=== PATIENT | female | born 2000 | race Caucasian/White ===

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

== ENCOUNTER → 2022-03-17 | Outpatient (CLI) | payer OTHER ==
--- NOTE | 2022-03-17 09:35 | USB ---
Reason for Exam: Clinical finding. Findings: The whole breast of both breasts, the axilla of both breasts and the retroareolar of both breasts were scanned. There is a hypoechoic complex area with posterior wall enhancement and good through transmission may be a complex cyst. Consider cyst aspiration. Overall Assessment: Suspicious, BI-RAD 4 Management: Aspiration of the right breast. A clinical breast exam by your physician is recommended on an annual basis and results should be correlated with mammographic findings. Electronically signed and approved by: Smith Hooper D.O. Radiologis
== END | disposition home or self-care (01) ==
LOC: RADUSWWP 08:10
PROVIDERS: ATTEND Family Medicine
DX: R92.8 Other abnormal and inconclusive findings on diagnostic imaging of breast (principal); N63.20 Unspecified lump in the left breast, unspecified quadrant

== ENCOUNTER → 2022-03-23 | Outpatient (CLI) | payer OTHER ==
[2022-03-23 14:54] VITALS: BP 112/74; PULSE 104; RESP 17; TEMP 98
--- NOTE | 2022-03-23 15:31 | P.GSHP ---
History of Present Illness H&P Date: 03/23/22 Chief Complaint: abnormal ultrasound of the right breast Sue is a 21 year old white female seen in consultation for Dr. Gilbert regarding a right breast cyst. She felt a lump in her right breast for about a week. It has not changed in size. It is not painful. She has tender breast, but she is on her period. She has not had any breast surgery in the past. She has history of any trauma or infection in her breast. She had a Nexplanon implant on 12-13-21 which will last until 12-13-24. Her periods are irregular since this has been placed. The patient had an exam on 03-15-22 and was noted to have 2 nodules one at 7:00 and one at 3:00 in the right breast. Ariella Holcomb's note is reviewed. CAffiene: occasional nicotine: none chocolate: occasional BCP: never used but has amira implant placed Family history: paternal aunt: cervical cancer paternal sister: cancer uncertain of type paternal uncle: cancer uncertain of the type paternal grandmother: uncertain of the type Hormonal History: menarche: 14 G0 implant 12-13-21: done for control periods irregular at this time Surgical History: none Medical History: none Social History: nicotine: none alcohol: none durgsl none - Constitutional Constitutional: Denies chills, Denies fever - EENT Eyes: denies blurred vision, denies pain Ears: deny: decreased hearing, tinnitus Ears, nose, mouth and throat: Denies headache, Denies sore throat - Breasts Breasts: bilateral: as per HPI - Cardiovascular Cardiovascular: Denies chest pain, Denies shortness of breath - Respiratory Respiratory: Denies cough, Denies 7 - Gastrointestinal Gastrointestinal: Denies abdominal pain, Denies diarrhea, Denies nausea, Denies vomiting - Genitourinary (Female) Genitourinary: Denies dysuria, Denies hematuria - Menstruation Menstruation: Reports cycle variable - Musculoskeletal Musculoskeletal: Denies myalgias - Integumentary Integumentary: Denies pruritus, Denies rash - Neurological Neurological: Denies numbness, Denies weakness - Psychiatric Psychiatric: Denies anxiety, Denies depression - Endocrine Endocrine: Denies fatigue, Denies weight change - Hematologic/Lymphatic Comment: none - Allergic/Immunologic Allergic/Immunologic: Reports as per HPI Past Medical History Past Medical History: No Reported History History of Any Multi-Drug Resistant Organisms: None Reported Past Surgical History: No Surgical Hx Reported Past Anesthesia/Blood Transfusion Reactions: No Reported Reaction Past Psychological History: ADD/ADHD Smoking Status: Never smoker Past Alcohol Use History: None Reported Past Drug Use History: None Reported Medications and Allergies Home Medications Medication Instructions Recorded Confirmed Type Fexofenadine/Pseudoephedrine 1 tab PO DIRECTED PRN 03/23/22 03/23/22 History [Yesenia-D 24 Hour Tablet] Allergies Allergy/AdvReac Type Severity Reaction Status Date / Time No Known Allergies Allergy Verified 03/23/22 14:48 Surgical - Exam Vital Signs Temp Pulse Resp BP Pulse Ox 98 F 104 H 17 112/74 99 03/23/22 14:50 03/23/22 14:50 03/23/22 14:50 03/23/22 14:50 03/23/22 14:50 BMI: 19.6 - General no distress - Neck trachea midline - Respiratory normal respiratory effort, clear to auscultation - Cardiovascular Rhythm: regular Heart Sounds: normal: S1, S2 - Abdomen Abdomen: soft, non tender, no guarding, no rigid, no rebound - Integumentary normal turgor - Neurologic no disoriented, no combative - Musculoskeletal normal gait, normal posture - Psychiatric oriented to time, oriented to person, oriented to place, speech is normal, memory intact Breast Exam: BRA: medium inspection: grade 1 ptosis; right breast is slightly larger than left breast palpation: right breast: multipositional exam very dense breast nodularity noted in the 7 o'clock position corresponding to ultrasound change Right axilla: No adenopathy of concern Left breast: Multi-positional exam very dense breast no dominant masses or nodules of concern Left axilla: No adenopathy of concern Results Ultrasound report reviewed as well as personally reviewed the ultrasound pictures Assessment and Plan Assessment: Impression: Fibrocystic breast changes Cystic lesion right breast noted on ultrasound corresponds to palpable change Plan: Ultrasound-guided aspiration Follow-up after ultrasound-guided aspiration CC: Ariella Holcomb
== END ==
LOC: WWCWWP 14:42
PROVIDERS: ATTEND Surgery
DX: N60.11 Diffuse cystic mastopathy of right breast (principal); N64.9 Disorder of breast, unspecified

== ENCOUNTER → 2022-04-06 | Day surgery (SDC) | payer OTHER ==
--- NOTE | 2022-04-12 08:55 | USB ---
Prior Study Comparison: 03/17/2022 Left US breast BILAT, [facility]. Pathology Description: Location: 8 o'clock, anterior. Right breast aspiration. Few drops collected and sent to lab. No marker left behind. The 7 mm round hypoechoic lesion with posterior through transmission was located at the 8:00 position, 1 cm from the nipple. This corresponds to the patient's palpable site. As a debris filled cyst is suspected, the area was targeted for aspiration. The ultrasound guided cyst aspiration procedure was explained to the patient. The risks, benefits, alternatives were discussed. An informed consent was then obtained. A time out was performed at . The patient was placed in supine positioning for imaging and for the procedure. The overlying skin was prepped with betadine and sterilely draped in usual sterile fashion. 8 ml 1% lidocaine was used as anesthetic into the skin and deeper breast tissue up to area of concern in the right 8 o'clock breast, 1 cm from nipple. During anesthetic injection, we were able to separate the lesion from the underside of the skin, excluding an epidermal inclusion cyst or sebaceous cyst. Under ultrasound guidance, an 18-gauge regular needle was advanced into the round lesion and aspiration yielded a couple drops of thick light brown fluid. The cyst decompressed completely. The needle was removed. Good hemostasis was obtained with direct pressure. Postprocedure mammogram: None. The patient tolerated the procedure well without any immediate complication. The patient was discharged to home in stable condition. We expect benign results; cyst contents. The patient can continue self breast exams. If any symptomatic or enlarging palpable area develops, the patient be rescanned. Impression: Successful ultrasound guided cyst aspiration 8:00 right breast. Cytology pending. We suspect benign cyst contents. Pathology Results: Result: Benign, Benign cyst. RIGHT BREAST, 8:00, ASPIRATE: Degenerated cellular material and blood, non-diagnostic. Overall Assessment: Benign Management: Diagnostic Breast Ultrasound of the right breast in 6 months. Electronically signed and approved by: Shanique Fields M.D. Radiologist
== END ==
LOC: RADUSWWP 12:33
PROVIDERS: ATTEND Surgery
DX: N63.0 Unspecified lump in unspecified breast (principal)
CPT/HCPCS: 76942; 88173

== ENCOUNTER → 2022-04-13 | Outpatient (CLI) | payer OTHER ==
[2022-04-13 08:02] VITALS: BP 110/62; PULSE 81; RESP 16; TEMP 97.7
--- NOTE | 2022-04-13 08:06 | P.PN ---
Subjective Progress Note Date: 04/13/22 Principal diagnosis: benign right breast cyst Sue is a 21 year old white female status post right breast cyst aspiration on 04-06-22. The pathology was benign. She did well with the biopsy. She does not feel any lumps masses or nodules of concern in either breast. Objective - Constitutional General appearance: Present: cooperative - EENT Eyes: Present: EOMI ENT: Present: hearing grossly normal - Neck Neck: Present: normal ROM - Respiratory Respiratory: bilateral: CTA - Cardiovascular Heart sounds: normal: S1, S2 - Integumentary Integumentary Comment(s): Biopsy site mild ecchymosis no evidence of any hematoma or infection right breast Integumentary: Present: normal turgor Assessment and Plan Assessment: Impression: Patient status post aspiration cystic lesion right breast cytology benign This 11 which would warrant interventional biopsy at this time. Plan: Patient will follow up in 1 year for breast examination Patient will follow-up sooner any questions or concerns Patient was seen in consultation with her father. Cc: Dr. Gilbert
== END | disposition home or self-care (01) ==
LOC: WWCWWP 07:44
PROVIDERS: ATTEND Surgery
DX: Z53.9 Procedure and treatment not carried out, unspecified reason (principal)